=== PATIENT | female | born 1960 | race Caucasian/White ===

== ENCOUNTER 2022-01-15 13:40 | Outpatient (CLI) | payer OTHER | END 2022-01-15 13:46 | disposition home or self-care (01) | LOC: LAB 13:40 → EDBD 13:40 → LAB 13:46 | PROVIDERS: ATTEND Radiology Diagnostic Radiology | DX: R22.1 Localized swelling, mass and lump, neck (principal) ==

== ENCOUNTER → 2022-01-23 | Outpatient (CLI) | payer OTHER | END | disposition home or self-care (01) | LOC: TOM 08:07 | DX: R22.1 Localized swelling, mass and lump, neck (principal) ==